=== PATIENT | male | born 1965 | race Caucasian/White ===

== ENCOUNTER 2025-01-22 20:15 | Emergency (ER) | payer BC, SELFPAY ==
[2025-01-22 20:18] VITALS: BP 145/96
[2025-01-22 22:12] VITALS: BP 141/82
--- NOTE | 2025-01-22 23:04 | ED.GENMED ---
History of Present Illness
General
Chief Complaint: Head Injury
Source: patient
Exam Limitations: none
Time Seen by Provider: 01/22/25 22:32
Nursing documentation reviewed up to this point in time: agreed with
History of Present Illness
History of Present Illness:
Patient states earlier today he struck the top of his head on a piece of machinery. He denies loss of consciousness, no neck or back pain. Noted to have superficial abrasion to the top of his head with scant bleeding initially which stopped
readily and has not recurred.
He has history of A-fib chronically maintained on Eliquis. He spoke with his brother who is an ED physician and due to head injury, on Eliquis was recommended to come to the ED.
He denies headache. No nausea nor vomiting. No weakness nor numbness. No difficulty with ambulation.
He states his last Tdap was within the past 5 years.
Past History
Past History
ED Past Medical History: Arrthythmia (Atrial fibrillation) and HTN
ED Past Surgical History: Orthopedic (Bilateral shoulder surgeries) and Other (Bilateral inguinal hernia, ear tubes)
Social History
Tobacco: Non-smoker
Alcohol: None
Drug: None
Personal:
Living: with family
Employment: Employed
Family History
Family History: Other (Noncontributory)
Phy Exam
Physical Exam
Physical Exam:
TRAUMA EXAM:
VITAL SIGNS: Vital signs reviewed, cooperative. 59-year-old quite tall gentleman, appears his stated age, he is bright alert, pleasant, appears in no acute distress. Quite eager to be discharged to home.
DISTRESS: No active disease
EYES: Pupils reactive, no orbital trauma
NOSE: No deformity or epistaxis
FACE AND SCALP: There is a 3 cm x 2 cm very superficial abrasion to the mid frontal scalp. No soft tissue swelling, no bleeding, no erythema. Minimal local tenderness to palpation. External canals no blood
NECK: Supple nontender, full range of motion without difficulty nor pain.
BACK: Back nontender, pelvis stable to compression
RESPIRATORY: No distress, breath sounds normal, no tender chest wall
CARDIAC: No murmur, pulses equal and strong
ABDOMEN: Soft nontender bowel sounds normal
SKIN: Warm and dry, normal color. Good turgor.
EXTREMITIES: Nontender
NEUROLOGICAL: Alert, oriented, no motor deficits. Gait is moffett and steady.
PSYCH: Mood affect normal
Course
Orders/Labs/Results
Orders:
Orders
01/22/25 20:21
CT Head W/o Iv Contrast Urgent
Comment:
Reason For Exam: head injury, on Eliquis
Vital Signs
Initial and Last Documented VS:
Initial Vital Signs
Temp Pulse Resp BP Pulse Ox
97.7 F 64 16 145/96 98
01/22/25 20:18 01/22/25 20:18 01/22/25 20:18 01/22/25 20:18 01/22/25 20:18
Last Documented Vital Signs
Temp Pulse Resp BP Pulse Ox
97.7 F 52 16 141/82 98
01/22/25 20:18 01/22/25 22:12 01/22/25 20:18 01/22/25 22:12 01/22/25 22:12
MDM/Problems Addressed
Differential Diagnosis Includes:
As patient chronically maintained on Eliquis, presents with head injury, concern for occult intracranial traumatic injury thus CT of the head performed which is unremarkable, no evidence of intracranial hemorrhage.
Tdap is up-to-date.
Discussed routine wound care for superficial scalp abrasion.
Discussed importance of SPF/sun block.
Follow-up with PCP as needed.
Chronic conditions affecting care: Arrhythmia
*Radiology
Radiology exam reviewed: radiology read reviewed
*Pulse Oximetry
Patient hypoxic: no
*Critical Care Note
Total Time (30-74mins, 75-104mins- exclusive of procedures): Not Applicable
ED Attending Note
-
Portions of this chart may have been created with voice recognition software.� Occasional wrong word or��sound alike� substitutions may have occurred due to the inherent limitations of voice recognition software.
Discharge Plan
Departure
Patient Disposition: Home (Routine Discharge)
Date of Disposition: 01/22/25
Time of Disposition: 23:05
Patient with high blood pressure during this ER visit?: No
Condition: Good
Discharge Problem:
Abrasion of scalp, Minor closed head injury
Prescriptions:
No Action
Atorvastatin
1 dose PO DAILY
metoprolol tartrate 100 MG tablet
100 mg PO DAILY
diltiazem HCl 360 MG capsule,extended release 24hr
360 mg PO DAILY
Valsartan
1 dose PO DAILY
Referrals:
Wayne Lieberman MD [Family Provider] -
Interventions
Interventions:
*Risk Screen - Suicide Last Done: 01/22/25 20:18
*General Assessment Last Done: 01/22/25 20:18
*Neglect/Abuse Screening Last Done: 01/22/25 20:18
*ED COVID-19 Vaccine History Last Done: 01/22/25 20:18
*Nursing Disposition Last Done: 01/22/25 23:04
ED- Neurological Assessment Last Done: 01/22/25 22:37
ED-Skin Assessment Last Done: 01/22/25 22:37
Discharge Date and Time
Discharge Date/Time: 01/22/25 23:07
Print Language: CROATIAN
== END 2025-01-22 23:07 | disposition home or self-care (01) ==
LOC: EMR 20:15
PROVIDERS: EMERGENCY PHYSICIAN Emergency Medicine; FAMILY PHYSICIAN Internal Medicine
DX: S00.01XA Abrasion of scalp, initial encounter (principal); W31.9XXA Contact with unspecified machinery, initial encounter; I48.91 Unspecified atrial fibrillation; I10 Essential (primary) hypertension; Z79.01 Long term (current) use of anticoagulants
CPT/HCPCS: 99284; 70450